=== PATIENT | female | born 1970 | race Caucasian/White ===

== ENCOUNTER → 2018-06-06 | Outpatient (CLI) | payer BC ==
[2015-09-16 17:50] VITALS: BP 92/44
[~2018-06-06] MED LIST: CLON1TAB11 PO; GABA600T7 PO; HYDR-2761 PO; ZOLP12.52 PO
--- NOTE | 2018-06-06 15:11 | CARD ---
MR#: [id number] Date of Study: 06/06/2018 Ordering Physician: ANDREIA BOTELLO, Referring Physician: ANDREIA BOTELLO, Tech: Edith Cobb APPROVED REPORT EXAM: Two-dimensional and M-mode echocardiogram with Doppler and color Doppler. Other Information Quality : AverageHR: 83bpm Technically limited study due to Breast Surgery INDICATION Chest pressure Edema RISK FACTORS Smoking light smoker 2D DIMENSIONS RVDd2.9 (2.9-3.5cm)Left Atrium(2D)2.6 (1.6-4.0cm) IVSd0.9 (0.7-1.1cm)Aortic Root(2D)3.1 (2.0-3.7cm) LVDd3.7 (3.9-5.9cm)LVOT Diameter2.0 (1.8-2.4cm) PWd0.9 (0.7-1.1cm)LVDs2.4 (2.5-4.0cm) FS (%) 35.0 %SV39.0 ml LVEF(%)65.1 (>50%) Aortic Valve AoV Peak Odilon.98.3cm/sAoV VTI18.4cm AO Peak GR.3.9mmHgLVOT Peak Odilon.80.8cm/s LVOT VTI 16.79cmAO Mean GR.2mmHg SATURNINO (VMAX)2.76fb2TRX (VTI)2.94cm2 Mitral Valve MV E Fzipwzst28.4cm/sMV DECEL [id number] MV A Rugvxuat64.4cm/sMV SIQ06lx E/A Ratio1.5MVA (PHT)3.41cm2 TDI E/Lateral E'6.9E/Medial E'7.9 Pulmonary Valve PV Peak Frhftkjb38.6cm/sPV Peak Grad.3mmHg Tricuspid Valve RAP KUTDBAWE3stVoIS Peak Gr.20mmHg [id number] LEFT VENTRICLE The left ventricle is normal size. There is normal left ventricular wall thickness. The left ventricu lar systolic function is normal and the ejection fraction is within normal range. The Ejection Fracti on is >55%. There is normal LV segmental wall motion. The left ventricular diastolic function and davion ling is normal for age. RIGHT VENTRICLE The right ventricle is normal size. There is normal right ventricular wall thickness. The right ventr icular systolic function is normal. ATRIA The left atrium size is normal. The right atrium size is normal. The interatrial septum is intact wit h no evidence for an atrial septal defect or patent foramen ovale as noted on 2-D or Doppler imaging. AORTIC VALVE The aortic valve is normal in structure and function. Doppler and Color Flow revealed no significant aortic regurgitation. There is no significant aortic valvular stenosis. MITRAL VALVE The mitral valve is normal in structure and function. There is no evidence of mitral valve prolapse. There is no mitral valve stenosis. Doppler and Color-flow revealed trace mitral regurgitation. TRICUSPID VALVE The tricuspid valve is normal in structure and function. Doppler and Color Flow revealed no tricuspid valve regurgitation noted with an estimated PAP of 23 mmHg. There is no tricuspid valve stenosis. PULMONIC VALVE The pulmonic valve is not well visualized. Doppler and Color Flow revealed no pulmonic valvular regur gitation. There is no pulmonic valvular stenosis. GREAT VESSELS The aortic root is normal in size. The IVC is normal in size and collapses >50% with inspiration. PERICARDIAL EFFUSION There is no evidence of significant pericardial effusion. Critical Notification Critical Value: No <Conclusion> The left ventricular systolic function is normal and the ejection fraction is within normal range. Th e Ejection Fraction is >55%. There is normal LV segmental wall motion. Signed by : Cesar Hammer, Electronically Approved : 06/06/2018 15:10:51
== END | disposition home or self-care (01) ==
LOC: ECHO 13:50
PROVIDERS: ATTEND Nurse Practitioner
DX: I44.4 Left anterior fascicular block (principal); R07.89 Other chest pain; R60.0 Localized edema; F17.200 Nicotine dependence, unspecified, uncomplicated
CPT/HCPCS: 93306

== ENCOUNTER → 2018-06-12 | Outpatient (CLI) | payer BC ==
[2015-09-16 17:50] VITALS: BP 92/44
--- NOTE | 2018-06-12 14:57 | KCIC ---
EXAM: Maxillofacial bone CT without contrast. HISTORY: Sinusitis. TECHNIQUE: Computed tomographic images of the axial facial bones were obtained without contrast. *One or more of the following individualized dose reduction techniques were utilized for this examination: 1. Automated exposure control. 2. Adjustment of the mA and/or kV according to patient size. 3. Use of iterative reconstruction technique. COMPARISON: None. FINDINGS: There is a small inferior right maxillary sinus mucous retention cyst. There are small mucous retention cyst within the right and left sphenoid sinus. The ostiomeatal units are widely patent. There is mild rightward nasal septal deviation. There is no sinus opacification or air-fluid level. There is no sinus wall erosion or thickening. The orbits, mastoid air cells and visualized portions the brain and calvarium are unremarkable. IMPRESSION: 1. Small right maxillary and sphenoid sinus mucus retention cysts. 2. Mild nasal septal deviation. Electronically signed by: Dipti Powell MD (06/12/2018 2:54 PM) [id number]
== END | disposition home or self-care (01) ==
LOC: KCIC CT 12:31
PROVIDERS: ATTEND Family Medicine
DX: J34.2 Deviated nasal septum (principal); J34.1 Cyst and mucocele of nose and nasal sinus; J32.9 Chronic sinusitis, unspecified; Z88.8 Allergy status to other drugs, medicaments and biological substances; Z87.891 Personal history of nicotine dependence
CPT/HCPCS: 70486